=== PATIENT | male | born 1955 | race Caucasian/White ===

== ENCOUNTER → 2016-07-31 | Outpatient (CLI) | payer OTHER | LOC: RAD 13:26 | DX: M23.306 Other meniscus derangements, unspecified meniscus, right knee (principal); M25.531 Pain in right wrist; M25.761 Osteophyte, right knee ==

== ENCOUNTER 2016-11-09 09:42 | Inpatient (IN) | payer OTHER ==
[~2016-11-09] VITALS: Ht 180.3 cm; Wt 150.6 kg
--- NOTE | ~2016-11-09 | H ---
[facility] [place] [address] HISTORY AND PHYSICAL Name: MIHAI SAMAYOA Room #: 426-P ADM IN M.R.#: [id number] Admission: 11/09/16 Attend Phys: Henry Rodriguez MD Discharge: Date of : 57 Report #: [id number] THIS REPORT FOR: //name// CC: Chau Rodriguez DATE OF SERVICE: 11/09/2016 CHIEF COMPLAINT: Left leg swelling and redness. HISTORY OF PRESENT ILLNESS: The patient is a 61-year-old male with history of diabetes and dyslipidemia, was referred for admission from his primary care doctor because of left leg swelling and redness. Symptoms ongoing for the last one week. The patient has been on Keflex without much relief. He has had pain with walking. The patient denies any new trauma. The patient denies any fever or chills. PAST MEDICAL HISTORY: Significant for diabetes and dyslipidemia. No history of any coronary artery disease. No history of any peptic ulcer disease or bleeding disorder. The patient does have chronic venous stasis and uses compression stockings. PAST SURGICAL HISTORY: Includes right hip surgery, hernia repair. ALLERGIES: No known drug allergy. HOME MEDICATIONS: Reviewed. Please look at the nursing documentation of the home meds. SOCIAL HISTORY: No smoking, alcohol abuse, or illicit drug abuse. FAMILY HISTORY: Significant for diabetes. REVIEW OF SYSTEMS: CONSTITUTIONAL: No recent weight loss or weight gain. No fever or chills. EYES: No change in vision. THROAT: Denies any sore throat. CARDIOVASCULAR: No chest pain, dizziness, or palpitations. RESPIRATORY: No cough or expectoration. GASTROINTESTINAL: No nausea, vomiting, or abdominal pain. GENITOURINARY: No dysuria or hematuria. NEUROLOGIC: No focal numbness or weakness of the extremities. PSYCHIATRIC: No anxiety or depression. A 12-point review of system is negative other than the positive and the negative dictated in the history of present illness and the review of system. [facility] [address] [place] [address] HISTORY AND PHYSICAL Name: DANITA,MIHAIASA RAMOS Room #: 426-[facility] IN M.R.#: [id number] Admission: 11/09/16 Attend Phys: Henry Rodriguez MD Discharge: Date of : 57 Report #: [id number] PHYSICAL EXAMINATION: VITAL SIGNS: Reviewed. GENERAL: The patient is awake and alert, not in acute respiratory distress. He is obese. EYES: Pupils equal, reactive to light, nonicteric conjunctivae. Throat appears normal. NECK: Supple, no JVD, no bruit, no lymphadenopathy. CARDIOVASCULAR SYSTEM: S1, S2, negative S3, no murmur. CHEST: Bilateral air entry present. Clear on auscultation. ABDOMEN: Soft, bowel sounds present. No mass, no organomegaly, no tenderness. PERIPHERY: Has chronic venous stasis changes on his right leg. He has discoloration over the right leg. Dorsalis pedis well felt on the right leg. He has probably trace edema on the right leg. Left leg is swollen. There is marked erythema involving his leg all the way from the knee down to up to the dorsum of the left foot. There is mild erythema extending just above the knee too. There is tenderness. There is increased warmth. Dorsalis pedis 1+ on the left side too. NEUROLOGICAL: The patient is able to move all 4 extremities. LABORATORY DATA: Pending. ASSESSMENT AND PLAN: 1. Cellulitis of the left leg. We will obtain basic labs, CBC and BMP. We will obtain blood cultures and start him on IV vancomycin and Zosyn. We will follow cultures and adjust antibiotic as needed. Pharmacy has been consulted to dose his vancomycin. 2. Diabetes. We will obtain the A1c level. The patient will be continued on his home medication. We will check frequent Accu-Cheks before meals and at bedtime with sliding scale insulin. 3. Deep venous thrombosis prophylaxis. He will be placed on Lovenox for deep venous thrombosis prophylaxis. 4. Dyslipidemia. The patient will be continued on simvastatin. Treatment plan has been explained to the patient and his at bedside in detail. <ELECTRONICALLY SIGNED> By: Henry Rodriguez MD 11/09/16 1513 1036 1100 Henry Rodriguez MD /nt
[2016-11-09 10:54] VITALS: BP 126/81
[2016-11-09] MEDS ORDERED: OMEPRAZOLE 20 M20 M1 PO (10:54)
[2016-11-09] MEDS ORDERED: SIMVASTATIN40 MG PO (10:55)
[2016-11-09] MEDS ORDERED: JANUMET 50-1,01 EACH PO (10:57)
[2016-11-09] MEDS ORDERED: GLIPIZIDE 10 MG10 MG PO (10:58)
[2016-11-09] MEDS ORDERED: ALLERGY10 M2 PO (10:59)
[2016-11-09] MEDS ORDERED: HYDROCODONE-AP1 EAC6 PO (11:01)
[2016-11-09 11:06] LABS: ABSOLUTE NEUTROPHILS 4.8 thou/uL (1.4-8.2); BASOPHILS 0.3 % (0.0-2.0); EOSINOPHILS 4.6 % (0.0-3.0); HEMATOCRIT 34.9 % (42.0-52.0); HEMOGLOBIN 11.6 gm/dL (14.0-18.0); LYMPHOCYTES 23.5 % (24.0-44.0); MCH 29.7 pg (26.0-34.0); MCHC 33.3 g/dL (28.0-37.0); MCV 89.1 fL (80.0-100.0); MONOCYTES 11.7 % (1.0-8.0); PLATELET COUNT 252 thou/uL (150-400); POLYS 59.9 % (36.0-66.0); RBC 3.91 mil/uL (4.50-6.00); RDW 13.9 % (10.5-14.5)
[2016-11-09 11:08] LABS: MANUAL DIFF NO
[2016-11-09 11:18] LABS: CALCIUM 9.7 mg/dL (8.5-10.1); CREATININE 0.9 mg/dL (0.7-1.3); POTASSIUM 3.6 mmol/L (3.5-5.1)
[2016-11-09 11:24] LABS: ALBUMIN 2.5 g/dL (3.4-5.0); TOTAL BILIRUBIN 0.9 mg/dL (<0.1-1.0); TOTAL PROTEIN 7.5 g/dL (6.4-8.2)
[2016-11-09 20:00] VITALS: BP 148/81
[2016-11-10] VITALS: BP 152/82
[2016-11-10 04:00] VITALS: BP 146/97
[2016-11-10 06:19] LABS: ABSOLUTE NEUTROPHILS 4.9 thou/uL (1.4-8.2); BASOPHILS 0.3 % (0.0-2.0); EOSINOPHILS 3.5 % (0.0-3.0); HEMATOCRIT 35.3 % (42.0-52.0); HEMOGLOBIN 11.6 gm/dL (14.0-18.0); LYMPHOCYTES 18.7 % (24.0-44.0); MCH 29.3 pg (26.0-34.0); MCHC 32.8 g/dL (28.0-37.0); MCV 89.4 fL (80.0-100.0); MONOCYTES 11.3 % (1.0-8.0); PLATELET COUNT 259 thou/uL (150-400); POLYS 66.2 % (36.0-66.0); RBC 3.95 mil/uL (4.50-6.00); WBC 7.4 thou/uL (4.0-11.0)
[2016-11-10 06:20] LABS: MANUAL DIFF NO
[2016-11-10 06:28] LABS: CALCIUM 9.5 mg/dL (8.5-10.1); CREATININE 0.9 mg/dL (0.7-1.3); POTASSIUM 3.9 mmol/L (3.5-5.1)
[2016-11-10 08:32] VITALS: BP 146/91
[2016-11-10 16:28] VITALS: BP 132/78
[2016-11-11 04:30] VITALS: BP 136/87
[2016-11-11 07:13] VITALS: BP 133/84
[2016-11-11 15:17] VITALS: BP 132/78
[2016-11-11 20:00] VITALS: BP 130/77
[2016-11-12 04:00] VITALS: BP 132/72
[2016-11-12 06:21] LABS: ABSOLUTE NEUTROPHILS 4.7 thou/uL (1.4-8.2); BASOPHILS 0.4 % (0.0-2.0); EOSINOPHILS 5.8 % (0.0-3.0); HEMATOCRIT 36.2 % (42.0-52.0); LYMPHOCYTES 20.5 % (24.0-44.0); MCH 29.8 pg (26.0-34.0); MCHC 33.2 g/dL (28.0-37.0); MCV 89.7 fL (80.0-100.0); MONOCYTES 7.3 % (1.0-8.0); PLATELET COUNT 324 thou/uL (150-400); RBC 4.04 mil/uL (4.50-6.00); WBC 7.2 thou/uL (4.0-11.0)
[2016-11-12 06:31] LABS: MANUAL DIFF NO
[2016-11-12 06:39] LABS: ALBUMIN 2.4 g/dL (3.4-5.0); CALCIUM 9.9 mg/dL (8.5-10.1); CREATININE 0.9 mg/dL (0.7-1.3); MAGNESIUM 2.2 mg/dL (1.8-2.4); TOTAL BILIRUBIN 0.6 mg/dL (<0.1-1.0); TOTAL PROTEIN 7.8 g/dL (6.4-8.2)
[2016-11-12 07:47] VITALS: BP 144/77
[2016-11-12 15:47] VITALS: BP 127/76
[2016-11-12 20:00] VITALS: BP 139/93
[2016-11-13 04:30] VITALS: BP 148/83
[2016-11-13 08:00] VITALS: BP 122/87
[2016-11-13] MEDS ORDERED: HYDROCODONE-AP1 EAC6 PO (09:24)
[2016-11-13] MEDS ORDERED: AUGMENTIN 875-1 EACH PO (09:24)
[2016-11-13 16:20] VITALS: BP 122/87
== END 2016-11-13 16:57 | disposition home or self-care (01) | DRG 602 ==
LOC: 4E 09:42 → ENTRNSPT 11-13 16:48 → 4E 11-13 16:57
PROVIDERS: Internal Medicine; Nurse Practitioner
DX: L03.116 Cellulitis of left lower limb (principal); E43 Unspecified severe protein-calorie malnutrition; Z68.42 Body mass index [BMI] 45.0-49.9, adult; E11.9 Type 2 diabetes mellitus without complications; E78.5 Hyperlipidemia, unspecified; Z83.3 Family history of diabetes mellitus
CPT/HCPCS: 10783

== ENCOUNTER → 2018-06-17 | Outpatient (CLI) | payer OTHER ==
[~2018-06-17] MED LIST: ALLERGY10 M2 PO; AUGMENTIN 875-1 EACH PO; GLIPIZIDE 10 MG10 MG PO; HYDROCODONE-AP1 EAC6 PO; JANUMET 50-1,01 EACH PO; OMEPRAZOLE 20 M20 M1 PO; SIMVASTATIN40 MG PO
== END ==
LOC: RAD 08:56
DX: M25.561 Pain in right knee (principal)

== ENCOUNTER → 2019-01-30 | Outpatient (CLI) | payer OTHER | LOC: RAD 15:30 | DX: M17.11 Unilateral primary osteoarthritis, right knee (principal) ==

== ENCOUNTER → 2019-08-29 | Outpatient (CLI) | payer OTHER | LOC: SJCVCIMAG 07:23 | PROVIDERS: ATTEND Internal Medicine | DX: R94.31 Abnormal electrocardiogram [ECG] [EKG] (principal); R07.9 Chest pain, unspecified; E78.5 Hyperlipidemia, unspecified; I45.10 Unspecified right bundle-branch block; I10 Essential (primary) hypertension; E66.9 Obesity, unspecified; E11.9 Type 2 diabetes mellitus without complications; Z79.899 Other long term (current) drug therapy ==

== ENCOUNTER → 2019-09-04 | Outpatient (CLI) | payer OTHER ==
[~2019-09-04] MED LIST changes: +ELIQUIS5 MG PO; +LISINOPRIL10 MG PO
== END ==
LOC: SJCVCIMAG 09:05
PROVIDERS: ATTEND Internal Medicine
DX: R94.31 Abnormal electrocardiogram [ECG] [EKG] (principal); E78.00 Pure hypercholesterolemia, unspecified; R07.9 Chest pain, unspecified; E78.5 Hyperlipidemia, unspecified; E11.9 Type 2 diabetes mellitus without complications; E66.9 Obesity, unspecified

== ENCOUNTER → 2019-09-18 | Outpatient (CLI) | payer OTHER ==
[~2019-09-18] VITALS: Ht 180.3 cm; Wt 148.8 kg
[2019-09-18 10:05] VITALS: BP 113/75
--- NOTE | 2019-09-18 10:48 | EKG ---
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
--- NOTE | 2019-09-19 09:45 | CATHLAB ---
[facility] [place] [address] [place] [address] INVASIVE PROCEDURE REPORT Name: DANITAMIHAI RAMOS Room #: REG [facility]#: [id number] Admission: 09/18/19 Attend Phys: Suresh Felix Discharge: Date of : 57 Report #: [id number] THIS REPORT FOR: cc: Chau Muniz Steven F. DO Lammoglia, Francisco J. MD ~ APPROVED REPORT Study performed: 09/18/2019 13:19:42 Patient Details Patient Status: Out-Patient Room #: The patient is a 63 year-old male Event Personnel Suresh Felix Manager Water, Any Gaxiola RT(R)() Monitor, Zehra Tirado RTR Monitor, Angy Monzon RN RN, Iram Dexter Ramos, Dexter RN fringe weaver Performed Art Access - R femoral artery* Left Heart Cath w/or w/o Coronaries [id number] [facility] [id number] Initial Mod Sed Same Phys/QHP Gr5y [id number] 59720 Mod Sed Same Phys/QHP Ea [id number] Hemostasis with Manual pressure, supervision of conscious sedation Indication Atypical chest pain , Positive stress test Procedure Narrative The Right Groin^ was infiltrated with 1% Lidocaine subcutaneous anesthesia. A PINNACLE 4FR Sheath #[id number] sheath was inserted into the RFA 4F^. Coronary angiography was performed using coronary diagnostic catheters. The right coronary system was accessed and visualized with a JR4 catheter. The left coronary system was accessed and visualized with a JL4 catheter. The left ventricle was accessed and visualized with a PIGTAIL catheter. Left ventriculogram was performed in 30 degree projection. Hemostasis was obtained with manual pressure following sheath removal without any complications. The patient tolerated the procedure well and there were no complications associated with the procedure. There was no hematoma. Intraoperative Conscious Sedation Sedation start time: 13:34 Case end Time: [facility] [place] [address] INVASIVE PROCEDURE REPORT Name: MIHAI SAMAYOA Room #: REG [facility]#: [id number] Admission: 09/18/19 Attend Phys: Suresh Mooney Discharge: Date of : 57 Report #: [id number] 14:00 Versed 3 mg Fluoro Time: 1.57 minutes Dose: DAP 5159.30 cGycm2 679 mGy Contrast Type and Amount: Omnipaque 45 ml Coronary Angiography The patient's coronary anatomy is left dominant. Diagnostic Cath Left Main Moderate caliber vessel of normal origin trifurcates into the left anterior descending ramus intermedius and left circumflex. It is short in length free of high-grade disease LAD Large-caliber type II vessel which courses in the anterior interventricular sulcus giving rise to septal diagonal branches tapering and terminating is a small vessel at the apex of the left ventricle. There is a proximal ectatic region that does not appear to have any significant plaquing and the vessel then rapidly tapers immediately after the first septal education consultant arises. Luminal irregularities are noted but no high-grade lesions are present Diagonal 1 Small to moderate caliber vessel coursing on the anterolateral wall of the left ventricle free of significant stenosis Diagonal 2 Small diminutive insignificant caliber vessel Circumflex Large-caliber dominant vessel which gives rise to first marginal branch which is small in caliber. There is some proximal irregularities of the circumflex proper lumen that are not flow-limiting or less than 30%. The vessel then continues in the AV groove posteriorly giving rise to a posterior wall posterior descending artery which is free of high-grade disease OM1 Small caliber vessel without high-grade lesions are noted Right Coronary Small caliber vessel giving rise to early right sided structure branch and and coursing with a RV marginal branch that extends into the posterior circulation. No significant high-grade lesions are noted no significant irregularities of the lumen are present Ramus Small caliber vessel coursing in the lateral aspect of the heart with a tortuosity proximally but no significant high-grade lesions present. The vessel is less than 1 mm in diameter Left Ventriculography Left Ventriculography was not performed. [facility] [address] [place] [address] INVASIVE PROCEDURE REPORT Name: MIHAI SAMAYOA Room #: REG [facility] Vences#: [id number] Admission: 09/18/19 Attend Phys: Suresh Mooney Discharge: Date of : 57 Report #: [id number] Hemodynamics The aortic pressure is 145/85 mmHg with a mean of 102 mmHg. The left ventricular pressure is 171/17 mmHg with a mean of mmHg. The left ventricular end diastolic pressure is 31 mmHg. Conclusion 1. Minimal nonobstructive coronary artery disease with only luminal irregularities noted 2. Normal hemodynamics Recommendations Cardiac Risk Reduction Program Medical Therapy <ELECTRONICALLY SIGNED> By: Suresh Felix MD 09/19/1944 4 4 Suresh Felix MD /INF
== END | disposition home or self-care (01) ==
LOC: CATH 09:00
PROVIDERS: ATTEND Internal Medicine
DX: R07.89 Other chest pain (principal); R94.39 Abnormal result of other cardiovascular function study; I25.10 Atherosclerotic heart disease of native coronary artery without angina pectoris; I10 Essential (primary) hypertension; E11.9 Type 2 diabetes mellitus without complications; E78.5 Hyperlipidemia, unspecified; K21.9 Gastro-esophageal reflux disease without esophagitis; Z98.890 Other specified postprocedural states; Z79.899 Other long term (current) drug therapy; Z79.01 Long term (current) use of anticoagulants

== ENCOUNTER → 2020-06-03 | Outpatient (CLI) | payer OTHER | LOC: ULTRA 10:25 | PROVIDERS: ATTEND Neuromusculoskeletal Medicine & OMM | DX: I80.251 Phlebitis and thrombophlebitis of right calf muscular vein (principal); M79.89 Other specified soft tissue disorders ==